=== PATIENT | male | born 1940 | race Caucasian/White ===

== ENCOUNTER 2018-10-10 07:12 | Observation (INO) | payer MEDICARE ==
[2018-10-10] MEDS ORDERED: Metoprolol Tartrate IV* 1 MG/ML 5 ML VIAL IV ONE (07:36)
[2018-10-10] MEDS ORDERED: hydrALAZINE IV* 20 MG/ML VIAL IV SLOW PU ONE (07:36)
[2018-10-10] MEDS ORDERED: Aspirin 81 mg CHEW TAB* 81 MG TAB.CHEW PO ONE (07:36)
--- NOTE | 2018-10-10 07:38 | ED ---
HPI Chest Pain - HPI Summary HPI Summary: Patient is a 78 y/o M presenting to ED with squeezing chest pain onsetting at 0300 today. No ripping/tearing nature to pain. Pain has been intermittent and at present he denies chest pain. No radiation of pain, no diaphoresis, no SOB, no nausea, no weakness reported. PMHx of [place] in 2000, stent has been placed. 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 He denies pain with exertion/activity. No recent illness reported. He notes some "aching" in lower jaw. No ASA or other medications taken [employer]. He notes that when he sat up, chest pain resolved, when he lied back down pain returned. He states that previous [place] was characterized by left arm pain and throat tightness. No such Sx reported today. claims that ST elevation was not observed on EKG during his 2000 [place]. He takes Metoprolol 25 mg BID. PMHx of HLD. FMHx of cardiac issues, father of [place] at 59. On triage, pain is denied. Home medications, allergies, and nurse's note reviewed. 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 Negative: Weakness, Shortness of Breath, Diaphoresis, Nausea - Allergy/Home Medications Allergies/Adverse Reactions: Allergies Allergy/AdvReac Type Severity Reaction Status Date / Time No Known Allergies Allergy Verified 10/10/18 07:18 PMH/Surg Hx/FS Hx/Imm Hx Endocrine/Hematology History: Denies: Hx Diabetes, Hx Systemic Lupus Erythematosus Cardiovascular History: Reports: Hx Coronary Artery Disease, Hx Hypercholesterolemia, Hx Hypertension - CONTROLLED WITH MEDS, Hx Myocardial Infarction GI History: Reports: Hx Gastroesophageal Reflux Disease History: Reports: Hx Benign Prostatic Hyperplasia Denies: Hx Renal Disease Musculoskeletal History: Reports: Hx Arthritis - KNEES Sensory History: Reports: Hx Contacts or Glasses - GLASSES Opthamlomology History: Reports: Hx Contacts or Glasses - GLASSES - Cancer History Cancer Type, Location and Year: Melanoma - Surgical History Surgery Procedure, Year, and Place: ORTHOSCOPIC KNEE SURGERY 1991 & [address] [facility] [place]. CARDIAC STENT- 2001 [place], [place]. "CLEAN OUT STENT" 2001 [place], [place] Hx Anesthesia Reactions: No Infectious Disease History: No Infectious Disease History: Denies: Traveled Outside the in Last 30 Days - Family History Known Family History: Positive: Cardiac Disease - father of [place] at 59 years of age - Social History Alcohol Use: Daily Alcohol Amount: 1-2 GLASSES OF WINE DAILY Substance Use Type: Reports: None Smoking Status (MU): Never Smoked Tobacco Type: Cigarettes Amount Used/How Often: 3-4 PPD Length of Time of Smoking/Using Tobacco: 26 YRS Have You Smoked in the Last Year: No Review of Systems Negative: Skin Diaphoresis Positive: Other - NEGATIVE - THROAT TIGHTNESS Positive: Chest Pain Negative: Shortness Of Breath Negative: Nausea Positive: Other - POSITIVE - JAW "ACHING"; NEGATIVE - LEFT ARM PAIN All Other Systems Reviewed And Are Negative: Yes Physical Exam - Summary Physical Exam Summary: Appearance: Well appearing, no pain distress Skin: warm, dry, reflects adequate perfusion Head/face: normal Eyes: EOMI, BRITTNI ENT: mucous membranes moist Neck: supple, non-tender Respiratory: CTA, breath sounds present Cardiovascular: RRR, pulses symmetrical Abdomen: non-tender, soft Bowel Sounds: present Musculoskeletal: normal, strength/ROM intact Neuro: normal, sensory motor intact, A&Ox3 Triage Information Reviewed: Yes Vital Signs On Initial Exam: Initial Vitals Temp Pulse Resp BP Pulse Ox 98.2 F 58 17 229/84 98 10/10/18 07:14 10/10/18 07:14 10/10/18 07:14 10/10/18 07:14 10/10/18 07:14 Vital Signs Reviewed: Yes Diagnostics - Vital Signs Vital Signs Temp Pulse Resp BP Pulse Ox 10/10/18 07:14 98.2 F 58 17 229/84 98 - Laboratory Result Diagrams: 10/10/18 07:43 10/10/18 07:43 Lab Statement: Any lab studies that have been ordered have been reviewed, and results considered in the medical decision making process. - Radiology CXR Radiology Interpretation Completed By: Radiologist Summary of Radiographic Findings: IMPRESSION: No radiographic evidence for acute cardiopulmonary abnormality on this. portable chest x-ray. This report was reviewed by ED physician. - EKG 0728 Cardiac Rate: Bradycardia - Rate of 55 BPM EKG Rhythm: Sinus Bradycardia ST Segment: Normal Summary of EKG Findings: EKG showed sinus bradycardia with rate of 55 BPM, left axis deviation, normal intervals, normal ST. Re-Evaluation - Re-Evaluation First Eval Re-Evaluation Time: 08:41 Change: Improved Comment: BP is 151 systolic. Discussed admission with patient, he is agreeable. Chest Pain Course/Dx - Course Course Of Treatment: Nurse's notes reviewed. Patient presents with chest pain very hypertensive. His blood pressure was controlled here with IV metoprolol, hydralazine. IV labetalol is not available. His initial troponin was negative and EKG is nondiagnostic for cardiac event. He will require further evaluation and treatment and will be admitted to the telemetry unit by the hospitalist service. - Chest Pain Differential Diagnosis/HQI/PQRI: Acute [place], ACS, Angina, Aortic Aneurysm, CHF, Chest Wall, GI Disease, Lower Respiratory Infection, Other: - Thoracic dissection - Diagnoses Provider Diagnoses: Hypertensive emergency, Acute coronary syndrome, Chest pain - Provider Notifications Discussed Care Of Patient With: Clark Hicks Time Discussed With Above Provider: 08:57 Instructed by Provider To: Other - Patient's case was discussed with Dr. Hicks at 0857, Dr. Hicks accepts for admission. Discharge - Sign-Out/Discharge Documenting (check all that apply): Patient Departure - admit - Discharge Plan Condition: Fair Disposition: ADMITTED TO [facility] Referrals: Didier Zaidi MD [Primary Care Provider] - - Billing Disposition and Condition Condition: FAIR Disposition: Admitted to [facility] - Attestation Statements Document Initiated by Royaibnatalia: Yes Documenting Scribe: JOEL CAMPBELL Provider For Whom David is Documenting (Include Credential): SANJANA CANO MD Scribe Attestation: JOEL Peters , scribed for SANJANA CANO MD on 10/10/18 at 1038. Scribe Documentation Reviewed: Yes Provider Attestation: The documentation as recorded by the JOEL betts accurately reflects the service I personally performed and the decisions made by me, SANJANA CANO MD Status of David Document: Viewed
[2018-10-10 07:57] LABS: INR 0.9 (0.77-1.02)
[2018-10-10 08:01] LABS: ABS Basophils 0 10^3/ul (0-0.2); ABS Eosinophils 0.3 10^3/ul (0-0.6); ABS Lymphocytes 1.4 10^3/ul (1.0-4.8); ABS Monocytes 0.6 10^3/ul (0-0.8); ABS Neutrophils 2.5 10^3/ul (1.5-7.7); ABS Nucleated RBC 0 10^3/ul; Eosinophil % 5.6 %; Hematocrit 45 % (42-52); Hemoglobin 15.5 g/dl (14.0-18.0); Lymphocyte % 28.7 %; Mean Corpuscular HGB Conc 34 g/dl (31-36); Mean Corpuscular Hemoglobin 33 pg (27-31); Mean Corpuscular Volume 95 fL (80-94); Mean Platelet Volume 8.4 fL (7.4-10.4); Nucleated Red Blood Cells % 0; Platelet Count 179 10^3/ul (150-450); Red Blood Count 4.76 10^6/ul (4.00-5.40); Red Cell Distribution Width 13 % (10.5-15); White Blood Count 4.8 10^3/ul (3.5-10.8)
[2018-10-10 08:10] LABS: Albumin 3.7 g/dL (3.2-5.2); Albumin/Globulin Ratio 1.1 (1-3); BUN/Creatinine Ratio 21.8 (8-20); Calcium 9.2 mg/dL (8.6-10.3); EGFR Non-African American 59.3 (>60); Globulin 3.4 g/dL (2-4); Potassium 4.4 mmol/L (3.5-5.0); Total Bilirubin 0.6 mg/dL (0.2-1.0); Total Protein 7.1 g/dL (6.4-8.9)
[2018-10-10] MEDS ORDERED: Hydrochlorothiazide TAB* 25 MG PO ONE (08:44)
[2018-10-10] MEDS ORDERED: amLODIPine TAB* 5 MG PO SCH (09:00)
[2018-10-10] MEDS ORDERED: Lisinopril TAB* 10 MG PO SCH (10:00)
[2018-10-10] MEDS ORDERED: Nitroglycerin TAB 0.4 MG* 0.4 MG TAB SL ONE (10:38)
[2018-10-10] MEDS ORDERED: Morphine VIAL* 4 MG/ML VIAL (1 ml vial) IV PRN (10:39)
[2018-10-10] MEDS ORDERED: hydrALAZINE IV* 20 MG/ML VIAL IV SLOW PU PRN ×2 (10:44→12:49)
[2018-10-10] MEDS: Enoxaparin(*) 40 MG/0.4 ML SYR SUBCUT SCH (12:32)
--- NOTE | 2018-10-10 13:06 | HP ---
ADMITTING HISTORY AND PHYSICAL: DATE OF ADMISSION: 10/10/18 CHIEF COMPLAINT: Chest pain. HISTORY OF PRESENT ILLNESS: The patient is a 78-year-old gentleman with a history of hyper tension, hypercholesterolemia, CAD, status post [place] with bare- metal stent many years ago, who mention ed that he was in his usual state of health until about 2 weeks prior to admission when he started fe eling some discomfort in his left jaw. This persisted for a while, but the patient decided to contin ue observing his symptoms until a few hours prior to admission at around 3 a.m. in the morning when rhea fisher woke up with a 10/10 chest pain where he mentions that as if his heart is being squeezed, but this time did not feel any jaw pain and it did not radiate. He was not clear as to how long the chest moses n lasted, but this made him concerned enough to go to the ER for evaluation, at which point he was fo und to have elevated blood pressure with a value of 229/84. He is still complaining of some mild [place] [address] pain and was given aspirin 81 mg, hydralazine 10, HCTZ 25 mg, lisinopril 20 mg, metoprolol 5 mg as well as amlodipine 10 mg which had subsequently improved this blood pressure and mentioned that his chest pain resolved shortly thereafter. PAST MEDICAL AND SURGICAL HISTORY: Hypertension, hypercholesterolemia, CAD, status post [place] with a ba re-metal stent, BPH, prediabetes, bilateral cataract surgery, arthroscopic meniscus repair of bilater al knee. HOME MEDICATIONS: As follows: 1. Omeprazole 1 tab p.o. b.i.d. 2. Metoprolol 25 mg p.o. b.i.d. 3. HCTZ 1 tab p.o. daily. 4. Finasteride 1 tab p.o. daily. 5. Benazepril 1 tab p.o. daily. 6. Atorvastatin 1 tab p.o. daily. 7. Aspirin 81 mg p.o. daily. 8. Amlodipine 2.5 mg p.o. daily. ALLERGIES: NKDA. FAMILY HISTORY: [place], his father, at the age of 59; diabetes, his mother and maternal grandfather . SOCIAL HISTORY: He mentions that he quit back in 1984 and has had at least 20 years smoking 2 packs per day. Denies any history of IV drug nor alcohol abuse. REVIEW OF SYSTEMS: Although, he did have chest pain as described, on my review, he was chest pain fr ee. He denied any headaches, dizziness, fevers, chills, nausea, vomiting, myalgias or arthralgias, t hroat pain or new skin lesions. The rest of the 14-point review of systems are otherwise unremarkabl e. PHYSICAL EXAMINATION GENERAL APPEARANCE: The patient is awake, alert, and oriented x3, not in acute distress. VITAL SIGNS: Reveals the most recent vital signs of records with blood pressure of 159/61, 56 beats per minute heart rate, 19 per minute respiratory rate, saturating at 99% on room air. HEENT: Normocephalic, atraumatic. PERRLA. Extraocular muscles intact. Negative for icterus. Mois t oral mucosa. Negative throat erythema. NECK: Soft, supple with no cervical lymphadenopathy. No JVD. CHEST: Clear to auscultation bilaterally. Good air entry. No wheezes, rales, or rhonchi. HEART: S1, S2, within normal limits. Regular rate and rhythm. No murmurs, rubs, or gallops. ABDOMEN: Soft, nondistended, nontender. Normoactive bowel sounds x4 quadrants. EXTREMITIES: No cyanosis, clubbing, or edema. PSYCHIATRIC: No active psychosis, depression, suicidal or homicidal ideations. SKIN: Warm to touch. DIAGNOSTIC STUDIES/LAB DATA: Most recent and pertinent laboratories drawn shows a CBC with normal W BC, H and H, and platelet count. INR is 0.9. Sodium and potassium are found to be normal. BUN and creatinine are found to be 26 and 1.19, which are within his baseline values. BNP of 35. Troponin o f 0.01. EKG showing 55 beats per minute, left anterior fascicular block with no ST segment changes. ASSESSMENT AND PLAN: The patient is a 78-year-old gentleman with a history of hypertension , hypercholesterolemia, and coronary artery disease, status post previous myocardial infarction, admi tted for chest pain possibly due to hypertensive urgency. 1. Chest pain likely secondary to uncontrolled hypertension. At this time, I agree with increasing amlodipine and continuing his lisinopril and HCTZ. I will place him on p.r.n. hydralazine and furthe r adjust his p.o. medications if he requires frequent hydralazine needs. We will trend cardiac enzym es x3 and will have the patient go for a Lexiscan stress test. He mentions that his last stress test was 2 years ago and was told that everything was "fine." 2. History of coronary artery disease. Continue aspirin, metoprolol, lisinopril, and simvastatin, a nd we will continue watchful waiting. 3. Uncontrolled hypertension. Please see above discussion. 4. Benign prostatic hypertrophy. Continue finasteride. 5. DVT prophylaxis. We will place the patient on Lovenox and we will continue watchful waiting. 6. Disposition. For possible discharge in 1 to 2 days. [id number]/[facility] #: [id number]
--- NOTE | 2018-10-10 15:30 | ECHO ---
Patient: ELLIOT [place] [facility] Rec#: [id number] : 1940 Date: 10/10/2018 Age: 78y Height: 183 cm / 72.0 in Weight: 97.5 kg / 214.9 lbs Sex: M BSA: 2.2 Room#: [facility] Admit Date#: 10/10/2018 Type: Inpatient Referring: Clark Hicks Reading: Richi Solano DO Medical Manager: Samira Alonso RDCS CC: Didier Zaidi MD CC: Jaime Alex MD Transthoracic Echocardiogram Indication: Chest pain BP: 154/65 HR: 55 Rhythm: Bradycardia Findings History: CAD with ND, s/p PCI, HTN, HLD. Technical Comments: The study quality is fair. Completed at 1415. Left Ventricle: The left ventricular chamber size is normal. Mild concentric left ventricular hypertrophy is observed. There is a prominent septal knuckle. Global left ventricular wall motion and contractility are within normal limits. There is normal left ventricular systolic function. The estimated ejection fraction is 60-65%. Abnormal left ventricular diastolic function is observed. The left ventricular diastolic filling pattern is consistent with pseudonormalization. Left Atrium: The left atrium is mildly dilated. Right Ventricle: The right ventricular chamber size and systolic function are within normal limits. Right Atrium: The right atrium is mildly dilated. Aortic Valve: The aortic valve is trileaflet. The aortic valve leaflets are mildly thickened. There is mild to moderate aortic regurgitation. There is no evidence of aortic stenosis. Mitral Valve: The mitral valve leaflets are mildly thickened. There is a trace of mitral regurgitation. There is no evidence of mitral stenosis. Tricuspid Valve: The tricuspid valve leaflets are normal. There is trace tricuspid regurgitation. Unable to estimate the right ventricular systolic pressure. There is no tricuspid stenosis. Pulmonic Valve: The pulmonic valve appears normal. There is a trace pulmonic regurgitation. There is no pulmonic stenosis. Pericardium: There is no significant pericardial effusion. Aorta: There is no dilatation of the ascending aorta. There is no dilatation of the aortic arch. The aortic root is normal in size. Pulmonary Artery: The main pulmonary artery is not well visualized. Venous: The venous system is not well visualized. The inferior vena cava is not visualized. Conclusions The left ventricular chamber size is normal. Mild concentric left ventricular hypertrophy is observed. There is a prominent septal knuckle. There is normal left ventricular systolic function. The estimated ejection fraction is 60-65%. Global left ventricular wall motion and contractility are within normal limits. The left atrium is mildly dilated. The right ventricular chamber size and systolic function are within normal limits. There is mild to moderate aortic regurgitation. None prior for comparison at time of interpretation Measurements Name Value Normal Range RVIDd (AP) 2D 3.7 cm (0.9 - 2.6) RVDdMajor (2D) 4.8 cm (2.2 - 4.4) RAd ISD 4CH 5.1 cm (3.4 - 4.9) RA (A4C)W 4.3 cm (2.9 - 4.6) IVSd (2D) 1.1 cm (0.6 - 1) LVPWd (2D) 1.1 cm (0.6 - 1) LVIDd (2D) 4.9 cm (3.6 - 5.4) LVIDs (2D) 3.2 cm - LV FS (2D) 35 % (25 - 45) Aortic Annulus 2.2 cm (1.4 - 2.6) Ao root diameter (2D) 3.5 cm (2.1 - 3.5) Ascending Ao 2.7 cm (2.1 - 3.4) Aortic arch 2.9 cm (1.8 - 3.4) LA dimension (AP) 2D 4.3 cm (2.3 - 3.8) LAd ISD 4CH 5.4 cm (2.9 - 5.3) LA ISD 4CH W 4.6 cm (2.5 - 4.5) Name Value Normal Range LA ESV BP (A/L) index 29 ml/m2 - Name Value Normal Range MV E-wave Vmax 0.7 m/sec - MV deceleration time 229 msec - MV A-wave Vmax 0.6 m/sec - MV E:A ratio 1.2 ratio - LV septal e' Vmax 0.06 m/sec - LV lateral e' Vmax 0.11 m/sec - LV E:e' septal ratio 11.7 ratio - LV E:e' lateral ratio 6.4 ratio - Name Value Normal Range AV Vmax 1.5 m/sec - AV VTI 33 cm - AV peak gradient 9 mmHg - AV mean gradient 5 mmHg - LVOT Vmax 1 m/sec - LVOT VTI 24 cm - LVOT peak gradient 4 mmHg - LVOT mean gradient 2 mmHg - AR PHT 510 msec - CYNTHIA Vmax 0.7 m/sec - Name Value Normal Range PV Vmax 0.9 m/sec - PV peak gradient 3 mmHg -
[2018-10-10] MEDS: Metoprolol Tartrate TAB* 25 MG PO SCH (20:52)
[2018-10-10] MEDS: Pantoprazole TAB * 40 MG TAB PO SCH (20:52)
[2018-10-11 07:10] LABS: Hematocrit 44 % (42-52); Mean Corpuscular HGB Conc 34 g/dl (31-36); Mean Corpuscular Hemoglobin 33 pg (27-31); Mean Corpuscular Volume 96 fL (80-94); Mean Platelet Volume 8.3 fL (7.4-10.4); Platelet Count 152 10^3/ul (150-450); Red Blood Count 4.58 10^6/ul (4.00-5.40); Red Cell Distribution Width 13 % (10.5-15); White Blood Count 5.3 10^3/ul (3.5-10.8)
[2018-10-11 07:27] LABS: Albumin 3.6 g/dL (3.2-5.2); Albumin/Globulin Ratio 1.2 (1-3); BUN/Creatinine Ratio 19.7 (8-20); Calcium 9.3 mg/dL (8.6-10.3); Globulin 3.1 g/dL (2-4); Magnesium 1.9 mg/dL (1.9-2.7); Phosphorus 3.1 mg/dL (2.5-5.0); Potassium 4.4 mmol/L (3.5-5.0); Total Bilirubin 0.6 mg/dL (0.2-1.0); Total Protein 6.7 g/dL (6.4-8.9)
[2018-10-11] MEDS ORDERED: Finasteride TAB* 5 MG PO SCH (09:00)
[2018-10-11] MEDS ORDERED: Lisinopril TAB* 10 MG PO SCH (09:00)
[2018-10-11] MEDS ORDERED: amLODIPine TAB* 5 MG PO SCH (09:00)
[2018-10-11] MEDS ORDERED: Atorvastatin* 40 MG TAB PO SCH (09:00)
[2018-10-11] MEDS ORDERED: Hydrochlorothiazide TAB* 25 MG PO SCH (09:00)
[2018-10-11] MEDS ORDERED: Aspirin EC TAB* 81 MG TAB.EC PO SCH (09:00)
[2018-10-11] MEDS ORDERED: Regadenoson* 0.4 MG/5 ML SYRINGE ONE (09:29)
--- NOTE | 2018-10-11 14:34 | PN ---
Subjective Date of Service: 10/11/18 Interval History: Pt seen and examined. Meds and labs reviewed. CC: N/A ROS: Denied STRANGE/dizziness, F/C, N/V, CP, SOB, increased cough, sputum production , abd pain, diarrhea, constipation, dysuria, myalgias, arthralgias, throat pain , and new skin lesions. The rest of the 14 point ROS are unremarkable. PHYSICAL EXAM: GEN APPEARANCE: Awake, not in acute distress HEENT: NC/AT, PERRLA, moist oral mucosa, (-) throat erythema NECK: Soft, supple, (-) cervical LAD, (-)JVD HEART: S1S2 WNL, RRR, No MRG CHEST: CTA, BL, GAE, No W/R/R ABD: Soft, ND/NT, NABS 4x Q EXT: No C/C/E SKIN: Warm to touch PSYCH: No active psychosis, hallucinations, depression, SI/HI Objective Active Medications: Amlodipine Besylate (Norvasc Tab*) 10 mg PO DAILY [facility] Aspirin (Aspirin Ec Tab*) 81 mg PO DAILY [facility] Atorvastatin Calcium (Lipitor*) 40 mg PO DAILY [facility] Enoxaparin Sodium (Lovenox(*)) 40 mg SUBCUT Q24H [facility] Last Admin: 10/10/18 12:32 Dose: 40 mg Finasteride (Proscar Tab*) 5 mg PO DAILY [facility] Hydralazine HCl (Apresoline Iv*) 10 mg IV SLOW PU Q6H PRN PRN Reason: Hypertension Hydrochlorothiazide (Hydrodiuril Tab*) 25 mg PO DAILY [facility] Lisinopril (Prinivil Tab*) 20 mg PO DAILY [facility] Metoprolol Tartrate (Lopressor Tab*) 25 mg PO BID [facility] Last Admin: 10/10/18 20:52 Dose: 25 mg Morphine Sulfate (Morphine Vial*) 0.5 mg IV Q6H PRN PRN Reason: PAIN Pantoprazole Sodium (Protonix Tab *) 40 mg PO BID [facility] Last Admin: 10/10/18 20:52 Dose: 40 mg Vital Signs - 8 hr 10/11/18 10/11/18 10/11/18 07:52 08:58 11:10 Temperature 97.5 F 98.1 F Pulse Rate 58 65 Respiratory 16 16 16 Rate Blood Pressure 144/68 139/61 (mmHg) O2 Sat by Pulse 100 100 Oximetry Oxygen Devices in Use Now: None Result Diagrams: 10/11/18 06:51 10/11/18 06:51 Assess/Plan/Problems-Billing Assessment: - Patient Problems (1) Hypertensive urgency Current Visit: Yes Status: Acute Code(s): I16.0 - HYPERTENSIVE URGENCY SNOMED Code(s): 629698031 Comment: -Resolved -Troponins (-) x 4 -BP well-controlled -Continue Amlodipine, HCTZ, Lisinopril, and Metoprolol (2) Chest pain Current Visit: Yes Status: Acute Code(s): R07.9 - CHEST PAIN, UNSPECIFIED SNOMED Code(s): 90351130 Comment: -Likely due to above -Awaiting results of stress test (3) CAD (coronary artery disease) Current Visit: Yes Status: Acute Code(s): I25.10 - ATHSCL HEART DISEASE OF [place] CORONARY ARTERY W/O ANG PCTRS SNOMED Code(s): 94429737 Comment: -Continue ASA, Metoprolol, Lisinopril, and simvastatin (4) GERD (gastroesophageal reflux disease) Current Visit: Yes Status: Acute Code(s): K21.9 - GASTRO-ESOPHAGEAL REFLUX DISEASE WITHOUT ESOPHAGITIS SNOMED Code(s): 820955592 Comment: -Continue Pantoprazole (5) BPH (benign prostatic hyperplasia) Current Visit: Yes Status: Acute Code(s): N40.0 - BENIGN PROSTATIC HYPERPLASIA WITHOUT LOWER URINRY TRACT SYMP SNOMED Code(s): 849796872 Comment: -Continue Finasteride (6) DVT prophylaxis Current Visit: Yes Status: Acute Code(s): SIF5518 - SNOMED Code(s): 414759918 Comment: -Continue Lovenox Status and Disposition: -As above
[2018-10-11 15:50] VITALS: BP 149/78
[2018-10-11] MEDS: Metoprolol Tartrate TAB* 25 MG PO SCH (16:40)
[2018-10-11] MEDS: Pantoprazole TAB * 40 MG TAB PO SCH (16:43)
[2018-10-11] MEDS: Enoxaparin(*) 40 MG/0.4 ML SYR SUBCUT SCH (16:44)
--- NOTE | 2018-10-11 21:21 | DS ---
CC: Dr. Keith Lane; Dr. Didier Zaidi * DISCHARGE SUMMARY: DATE OF ADMISSION: DATE OF DISCHARGE: 10/11/18 DISCHARGE DIAGNOSES: 1. Hypertensive urgency, resolved. 2. Chest pain, resolved, likely due to above; stress test low probability. 3. Coronary artery disease, history of. 4. Benign prostatic hypertrophy, history of. DISCHARGE MEDICATIONS: 1. Norvasc 10 mg p.o. daily. 2. Aspirin 81 mg p.o. daily. 3. Finasteride 5 mg tab p.o. daily. 4. HCTZ 25 mg p.o. daily. 5. Metoprolol tartrate 25 mg p.o. b.i.d. 6. Omeprazole 20 mg p.o. b.i.d. 7. Atorvastatin 40 mg p.o. daily. 8. Benazepril 40 mg p.o. daily. HISTORY OF PRESENT ILLNESS/HOSPITAL COURSE: The patient is a 78-year-old gentleman with history of hypertension, hypercholesterolemia, CAD, status post [place] with bare metal stent many years ago, who was in his usual state of health until 2 weeks prior to admission when he started feeling some discomfort in his left jaw. He mentioned that this persisted for a while, but decided to continue observing his symptoms until a few hours prior to admission at around 3 a.m. in the morning when he woke up with a 10/10 chest pain where he mentions as if his heart was being squeezed. He there presented to the ED for evaluation and was found to have an elevated blood pressure with a value of 229/84. He was then given antihypertensives in the ED and his oral antihypertensives were adjusted, which resolved his symptoms acutely such as the chest pain that he presented with and felt better the following day. He also had a stress test done, which was resulted as low probability stress test and hence he will be discharge to home improved and likely the patient has had a chest pain due to hypertensive urgency as described. The patient had been advised to follow up and/or call his PCP within 3 days post discharge. He was informed that the stress test back as being low risk and he was advised to count his daily sodium intake by looking at this labels; and if his food is unlabeled, he was asked to goggle and performed an appropriate research on the amount of sodium per serving of the food that he is interested in. He was advised further that he should avoid consuming more than 2 g of sodium per day. If his symptoms resume or develop new ones, he was advised to call his PCP first; and if his PCP cannot entertain and due to scheduling issues alone to call [facility] if the issue is considered non emergent. He was advised to call my office regarding any questions, concerns, or further clarifications regarding his discharge plans and/or prescriptions and to take his medications as prescribed. REVIEW OF SYSTEMS: The patient currently denies any headache, dizziness, fevers , chills, nausea, vomiting, chest pain, shortness of breath, increased cough, sputum production, abdominal pain, diarrhea, constipation, pain and/or increased frequency on urination, myalgias or arthralgia, throat pain, or new skin lesion. The rest of the 14-point review of systems are otherwise unremarkable. PHYSICAL EXAMINATION: Shows the most recent vital signs of records with blood pressure of 149/78, 99.4 degrees Fahrenheit, 96 beats per minute heart rate, 14 per minute respiratory rate, saturating at 100% on room air. General Appearance : The patient is awake, alert, and oriented x3, not in acute distress. HEENT: Normocephalic, atraumatic. PERRLA. Extraocular muscles intact. Negative for icterus. Moist oral mucosa. Negative throat erythema. Neck is soft, supple with no cervical lymphadenopathy. No JVD. Heart: S1 and S2, within normal limits. Regular rate and rhythm. No murmurs, rubs, or gallops. Chest: Clear to auscultation bilaterally. Good air entry. No wheezes, rales, or rhonchi. Abdomen is soft, nondistended, nontender. Normoactive bowel sounds x4 quadrants. Extremities: No cyanosis, clubbing, or edema. Psychiatric: No active psychosis, depression, suicidal nor homicidal ideation. Skin is warm to touch. TIME SPENT: The total time spent evaluating the patient, reviewing pertinent data, and appropriate documentation is 45 minutes. [id number]/[facility] #: [id number] MTDD
== END 2018-10-11 17:30 | disposition home or self-care (01) ==
LOC: ED 07:12 → MEDTELE 10:25
PROVIDERS: ADMIT Student in an Organized Health Care Education/Training Program; ATTEND Student in an Organized Health Care Education/Training Program
DX: I10 Essential (primary) hypertension (principal); R07.9 Chest pain, unspecified; I25.10 Atherosclerotic heart disease of native coronary artery without angina pectoris; N40.0 Benign prostatic hyperplasia without lower urinary tract symptoms; Z79.82 Long term (current) use of aspirin; F43.9 Reaction to severe stress, unspecified; K21.9 Gastro-esophageal reflux disease without esophagitis
CPT/HCPCS: 36415; 71045; 78452; 80053; 83605; 83735; 83880; 84100; 84484; 85025; 85027; 85610; 93005; 93017; 93306; 96372; 96374; 96375; 99284; A9270-GY; A9502; G0378; J0360; J1650; J2785; J3490

== ENCOUNTER 2019-10-07 07:36 | Observation (INO) | payer MEDICARE ==
--- NOTE | 2019-09-30 15:06 | HP ---
HISTORY AND PHYSICAL: DATE OF ADMISSION: 10/07/19 ATTENDING PROVIDER: Dr. Milian * (DICTATED BY GODFREY OROZCO) CHIEF COMPLAINT: Right hip pain. HISTORY OF PRESENT ILLNESS: Mr. Minor is a 79-year-old gentleman with bilateral hip pain over 3 years, 5/10, aching in the groin and lateral hip on both thighs. The pain is increased with walking more than a block, prolonged sitting, and stair climbing. In the past, he has failed conservative management with anti- inflammatories, home exercises, and injections of the hip under ultrasound guidance. He would like to proceed with a right total hip arthroplasty at this time. PAST MEDICAL HISTORY: 1. Hypertension. 2. Prior myocardial infarction. 3. Hypercholesterolemia. 4. Osteoarthritis. 5. Melanoma. 6. Raynaud disease. 7. Umbilical hernia. PAST SURGICAL HISTORY: 1. Cardiac stent. 2. Cataract excision. 3. Melanoma excision. 4. Bilateral meniscus knee surgeries 20 years ago. 5. Skin carcinoma excision. MEDICATIONS: 1. Amlodipine. 2. Aspirin 81 mg. 3. Multivitamin. 4. Omeprazole 20. 5. Finasteride 5 mg. 6. Atorvastatin calcium 40 mg. 7. Benazepril 40 mg. 8. Hydrochlorothiazide 25 mg. 9. Metoprolol 50 mg. 10. Calcium 500+ D3 600 ALLERGIES: No known drug allergies. FAMILY HISTORY: Maternal diabetes, paternal heart disease and hypertension. SOCIAL HISTORY: The patient lives with his . He is retired. No tobacco or recreational drug use. He drinks 5 to 7 alcoholic beverages per week. He is normally active with walking and right-hand dominant. REVIEW OF SYSTEMS: General: The patient denies any fevers, chills, or night sweats. No known anesthesia problems. HEENT: The patient denies any headaches , lightheadedness or syncopal episode. Cardiothoracic: Denies any chest pain, heart palpitations, or edema. Pulmonary: Denies any shortness of breath with exertion, chronic cough. GI: The patient denies any nausea, vomiting, diarrhea , or constipation. : The patient denies any nocturia, urinary frequency or urgency. MSK: The patient denies any chronic or intermittent back pain. Neuro: Denies any paresthesias, numbness, or seizures. Integument: The patient denies any abrasions, lesions, rashes, lumps, or open sores. PHYSICAL EXAMINATION GENERAL: The patient is alert and oriented x3 with appropriate mood and affect , appropriately dressed and hygiene, slightly antalgic gait. HEENT: Normocephalic atraumatic. Hearing and vision are grossly intact. PULMONARY: Lungs are clear to auscultation bilaterally with no wheezes, rales or rhonchi. CARDIO: Regular rate and rhythm. Normal S1 and S2. No appreciable S3 or S4. No murmurs, rubs, or gallops. MSK: Inspection of the right lower extremity reveals no erythema or ecchymosis. Skin is warm, dry, and intact. He has range of motion of the hip to 90 degrees with groin pain. 0 degrees of internal rotation and 30 degrees of external rotation with groin pain. He is neurovascularly intact distally and has a 2+ dorsalis pedis pulse. ASSESSMENT: Bilateral end-stage osteoarthritis, right hip worse than left. PLAN: To the OR for a right total hip arthroplasty to be performed by Dr. Halina Milian on 10/07/19. The risks and complications were reviewed today and a signed understanding was obtained. The patient will follow up in 10 to 14 days postoperatively for suture removal. GODFREY OROZCO [id number]/[facility] #: [id number] MTDD
[~2019-10-07 07:36] MED LIST: Acetaminophen TAB* 325 MG PO ONE; Buffered Lidocaine 1% SYRIN* 1 ML/SYRINGE INTRADERM ONE; Lactated Ringers 1000 ML Bag* 1,000 ML IV SCH; Tranexamic Acid 1,000 MG in NS 0.9% 50 ML IV ONE; celeCOXIB CAP* 200 MG PO ONE
[2019-10-07] MEDS ORDERED: ceFAZolin 2 GM in NS PREMIX(*) 2 GM/100 ML BAG IVPB ONE (08:14)
[2019-10-07] MEDS ORDERED: celeCOXIB CAP* 200 MG ONE (08:14)
[2019-10-07] MEDS ORDERED: Acetaminophen TAB* 325 MG ONE (08:14)
[2019-10-07] MEDS ORDERED: Naloxone* 0.4 MG/ML 1 ML VIAL IV PRN (09:27)
[2019-10-07] MEDS ORDERED: HYDROmorphone INJ1* 1 MG/ML SYRINGE IV PRN (09:27)
[2019-10-07] MEDS ORDERED: fentaNYL* 50 MCG/ML 2 ML VIAL (100 MCG VIAL) ONE (09:32)
[2019-10-07] MEDS ORDERED: EPHEDrine (Pressors)* 50 MG/ML VIAL ONE (10:10)
[2019-10-07] MEDS ORDERED: Ondansetron INJ* 2 MG/ML VIAL ONE (10:10)
[2019-10-07] MEDS ORDERED: Dexamethasone IV* 4 MG/ML 1 ML (4 MG) ONE (10:10)
[2019-10-07] MEDS ORDERED: Propofol* 500 MG/50 ML BTL ONE (10:10)
[2019-10-07] MEDS ORDERED: Bupivacaine 0.5% SDV PF* 30ML VIAL ONE (10:23)
[2019-10-07] MEDS ORDERED: Propofol* 10 MG/ML 20 ML BTL ONE (11:32)
[2019-10-07] MEDS ORDERED: diPHENhydraMINE PO* 25 MG PO PRN (11:59)
[2019-10-07] MEDS ORDERED: Morphine INJ* 2 MG/ML 1 ML SYRINGE (TWO MG - NEW SYRINGE VERSION) IV PRN (11:59)
[2019-10-07] MEDS ORDERED: oxyCODONE TAB* 5 MG TAB PO PRN (11:59)
[2019-10-07] MEDS ORDERED: Ondansetron INJ* 2 MG/ML VIAL IV PRN (11:59)
[2019-10-07] MEDS ORDERED: Acetaminophen TAB* 325 MG PO PRN (11:59)
[2019-10-07] MEDS ORDERED: diPHENhydraMINE IV* 50 MG/ML 1 ml VIAL (BENADRYL) IV PRN (11:59)
[2019-10-07] MEDS ORDERED: Ondansetron ODT TAB* 4 MG PO PRN (11:59)
[2019-10-07] MEDS ORDERED: oxyCODONE/Acetamin 5/325 MG* TAB PO PRN (11:59)
[2019-10-07] MEDS ORDERED: Magnesium Hydroxide LIQ* 30 ML UDC PO PRN (11:59)
[2019-10-07] MEDS ORDERED: Cyclobenzaprine TAB* 10 MG PO PRN (11:59)
[2019-10-07] MEDS ORDERED: Lactated Ringers 1000 ML Bag* 1,000 ML IV SCH (12:00)
[2019-10-07] MEDS ORDERED: oxyCODONE/Acetamin 5/325 MG* TAB ONE (14:04)
[2019-10-07] MEDS: oxyCODONE/Acetamin 5/325 MG* TAB PO PRN ×2 (14:07→17:57)
[2019-10-07] MEDS: amLODIPine TAB* 5 MG PO SCH (14:07)
--- NOTE | 2019-10-07 14:19 | CONS ---
[facility] MEDICINE CONSULTATION REPORT: DATE OF CONSULT: 10/07/19 ATTENDING PHYSICIAN WHILE IN THE HOSPITAL: Dr. Halina Milian. CONSULTING PHYSICIAN: Dr. Shraddha Castellon (dictated by Halina August NP). REASON FOR CONSULT: Co-management of chronic medical conditions. HISTORY OF PRESENT ILLNESS: Mr. Minor is a 79-year-old male with a past medical history significant for hypertension, history of an [place], hyperlipidemia, osteoarthritis, melanoma, Raynaud disease, who [place] [facility] [place] an elective right total hip arthroplasty with Dr. Milian. Please see dictated H and P from GODFREY Peres for complete details. In brief, the patient had ongoing pain, failed conservative measures, therefore opted for a right total hip arthroplasty with Dr. Miilan. In the immediate postoperative period, the patient has no complaints. He denies any chest pain or shortness of breath. Denies any nausea, vomiting, or diarrhea. Denies any abdominal pain. Denies any cough or congestion. Denies any recent fever or chills. Due to the patient' s history of hypertension and coronary artery disease, Hospital Medicine was asked to help co-manage his care during this hospitalization. PAST MEDICAL HISTORY: Significant for: 1. Osteoarthritis. 2. Hypertension. 3. History of [place]. 4. Hyperlipidemia 5. Melanoma. 6. Raynaud disease. 7. Umbilical hernia. PAST SURGICAL HISTORY: 1. Cardiac stent placement. 2. Cataract surgery. 3. Melanoma. 4. Meniscus repair to the knee. MEDICATIONS: Home medications include: 1. Aspirin 81 mg p.o. daily. 2. Atorvastatin 40 mg p.o. daily. 3. Finasteride 5 mg p.o. daily. 4. Hydrochlorothiazide 25 mg p.o. daily. 5. Lopressor 25 mg p.o. b.i.d. 6. Omeprazole 20 mg p.o. daily. 7. Benazepril 40 mg p.o. daily. 8. Calcium 1 tab p.o. daily. 9. Multivitamin 1 tab p.o. daily. 10. Amlodipine 10 mg p.o. daily. ALLERGIES: No known drug allergies. FAMILY HISTORY: Father at the age of 59 from an [place], mother and maternal grandfather with diabetes. No reported history of cancer. SOCIAL HISTORY: The patient reports that he quit smoking in 1984. Prior to that, he smoked for 30 years, 4 to 5 packs per day. He does report he drinks a glass of wine 3 to 5 days a week. No illicit drug use. Surrogate decision maker in the event he is unable to make his own decisions is his . He is a full code. REVIEW OF SYSTEMS: A 14-point review of systems was completed. All pertinent positives are mentioned in the HPI. PHYSICAL EXAM: General: At this time, Mr. Minor is a 79-year-old male. He is alert and oriented, resting in the hospital bed in PACU. He is in no acute distress. Vital Signs: Blood pressure 168/68, heart rate 50, respirations 18, O2 saturation 98% on room air. Temperature was 97.0. HEENT: Head is atraumatic, normocephalic. Eyes: EOMs are intact. Sclerae anicteric and not pale. Oral mucosa is moist. Neck is supple. Lungs are clear to auscultation bilaterally. No wheezes, rales, or rhonchi. Cardiac: S1 and S2. Regular rate and rhythm. No rubs or gallops. Abdomen: Obese, soft, nontender. Bowel sounds are present x4. Extremities: He is able to move all 4 extremities. He does have a dressing that is dry and intact to his right hip. Pedal pulses are +2 bilaterally. There is no clubbing or cyanosis. Neurologic: He is awake, alert, oriented x3. His speech is clear. Thought process is intact. There is gross focal deficit. Skin: He does have a dressing dry and intact to his right hip. DIAGNOSTIC STUDIES/LAB DATA: CBC from 09/29/19, WBCs were 7.8, RBCs 4.71, hemoglobin 15.7, hematocrit was 45, platelet count was 174. INR was 0.95. PTT was 31.3. Urine was within normal limits with the exception of glucose of 3+. IMPRESSION AND PLAN: Mr. Minor is a 79-year-old male with past medical history significant for hypertension; history of myocardial infarction, status post cardiac stenting; hyperlipidemia; osteoarthritis; melanoma; Raynaud's; and history of umbilical hernia, who presented [place] [facility] [place] elective right total hip arthroplasty with Dr. Milian. Our recommendations are as follows: 1. Status post right total hip arthroplasty. Management per Orthopedics. PT and OT per Orthopedics. Bowel regimen per Orthopedics. Pain management per Orthopedics. DVT prophylaxis per Orthopedics. 2. Hypertension. We will continue his amlodipine. I will give him a dose now. I will cut his benazepril to 20 mg p.o. daily and titrate as needed to control blood pressure. I will hold his hydrochlorothiazide at this time and will continue Lopressor 25 mg p.o. b.i.d. 3. Coronary artery disease. The patient will continue on Lopressor and atorvastatin as previously prescribed. 4. Hyperlipidemia. The patient will continue atorvastatin 40 mg p.o. daily. 5. Gastroesophageal reflux disease. He should continue on omeprazole 20 mg p.o. daily. 6. FEN: He can have a heart healthy, caffeine okay diet. 7. Code status: He is a full code. 8. DVT prophylaxis: As per Ortho. TIME SPENT: Time spent on this consultation was 45 minutes, greater than half that time was spent at the bedside reviewing events leading thus far to his hospitalization, performing physical exam, and reviewing my plan of care. I have discussed this with my attending Dr. Shraddha Castellon; she is in agreement with my plan. HALINA AUGUST, [place] [id number]/[facility] #: [id number] DONNELL
--- NOTE | 2019-10-07 15:31 | PN ---
Progress Note - Progress Note Date of Service: 10/07/19 Note: OOB to chair, resting comfortably. pain well controlled; able to DF/PF, 2+ DP pulse, intact sensation
[2019-10-07] MEDS: ceFAZolin 1 GM ADVAN(*) 1 GM in NS 0.9% 50 ML* 50 ML IVPB SCH (17:58)
[2019-10-07] MEDS ORDERED: Atorvastatin* 40 MG TAB PO SCH (18:00)
--- NOTE | 2019-10-07 19:26 | OP ---
Operative Report - Blank - Operative Report Date of Operation: 10/07/19 Note: ELLIOT OH 1940 Date Of Surgery: 10/07/19 Halina Milian MD Hand Mica Plate Layer: Carmelo DONAHUE did help throughout the procedure with preparation of the hip, wound retraction, manipulation of the hip, and wound closure. Anesthesiologist: DR. Sethi Anesthesia Type: Spinal Preoperative Diagnosis: Right severe degenerative osteoarthritis of the hip Postoperative Diagnosis: As above Procedure Performed: Right Total Hip Arthroplasty Complications: None Specimen: Femoral head and acetabular reamings sent to pathology. Hardware used: This is uncemented [place] total hip arthroplasty hardware for the femur a size 6 accolde II with 127 neck angle femoral component, for the acetabulum a size 56F trident II tritanium cluster hole shell with one 20mm screw, for the insert a size 40 F trident X3 polyethylene insert, and for the femoral head a size 40+0 LFIT anatomic metal V40 femoral head. Brief history/Indication: ELLIOT OH was known in clinic and had a history of severe right hip pain. He failed conservative treatment with anti- inflammatories, pain pills, intra-articular injections and physical therapy. He elected to undergo right total hip arthroplasty due to continued pain and decreased quality of life. Radiographs showed severe end stage osteoarthritis of the hip with bone on bone contact. Informed consent was obtained from the patient. He understood the risks of surgery included but were not limited to: bleeding, infection, damage to nearby structures, intraoperative fracture, nerve palsy, failure of the hardware, early loosening, stiffness or loss of motion, dislocation, leg length discrepancy, anesthesia complications, stroke, heart attack, blood clot and . He wished to proceed. Intra-Operative findings: Intraoperatively the patient was noted to have severe loss of cartilage of the acetabulum and femoral head. Description of the Procedure: ELLIOT OH was identified in the preanesthesia unit. His hip was marked as the correct operative side. Informed consent was signed and placed in the chart. The patient was taken to the operating room and placed under anesthesia without complication. A perez catheter was placed. The patient was placed on the peg board with all bony prominences well padded. The right lower extremity was prepped and draped in the usual sterile fashion. Preoperative time-out was made to correctly identify the patient, side and site. Appropriate intraoperative antibiotics were given within one hour of incision. A standard posterior incision was made and carried sharply down to the lateral fascia. A new 10 blade was used to make an incision in the fascia in line with the skin incision. A charnley retractor was placed. The piriformis and conjoined tendons were identified and elevated off the posterolateral femur using electrocautery. These were tagged with number 5 Ethibond. Next electrocautery was used to make a posterolateral capsular flap and this was tagged with number 5 Ethibonds. The hip was carefully dislocated. Lesser trochanter to the center of the femoral head was measured at 62 mm. The oscillating saw was used to make the femoral neck cut. The femoral head was carefully removed. The femur was retracted anteriorly and the acetabular retractors were placed. Long-handled knife was used to sharply remove any remaining labrum from the acetabular rim. The acetabulum was sequentially reamed up to a size 56. A bleeding subchondral bone bed was obtained. A trial liner was placed and had excellent fit and stability. A 56F cup with a 20 mm screw was placed and had excellent stability with appropriate anteversion and abduction angle. A size 40F polyethylene liner was impacted into the acetabular shell. The liner was checked for stability and was stable. Next attention was turned to preparation of the femoral canal. A canal finder was used to enter the proximal femur. The femoral canal was sequentially broached up to a size 6 femoral broach trial. A trial neck and 40+0 trial femoral head was chosen. Lesser trochanter to center of the femoral head measurement was satisfactory. The hip was reduced and taken through a range of motion. The hip was stable in all positions with good soft tissue tension and appropriate leg lengths. The hip was dislocated and all trials were removed. The final implant chosen was a accolade II size 6. This stem was impacted into the femoral canal without difficulty. The stem was stable with appropriate anteversion. The femoral head chosen was a 40 +0 metal head. The head was impacted onto the femoral neck without difficulty. The final lesser trochanter to center of the femoral head measurement was satisfactory. The hip was reduced and taken through a range of motion. The hip was stable in all positions with good soft tissue tension and appropriate leg lengths. The hip was copiously irrigated with sterile saline. The previously tagged capsule and tendons were repaired to the posterolateral femur through two trochanteric drill holes. The lateral fascia layer was closed using number 1 vicryls. The rest of the incision was closed in a layered fashion using 0 and 2-0 vicryls. The skin was closed using 3-0 monocryl suture and Dermabond. Sterile adaptic, 4x4s and paper tape was used to cover the incision. The patients anesthesia was reversed without difficulty. He was taken to the PACU in stable condition. Intended weight-bearing will be as tolerated with posterior hip precautions.
[2019-10-07] MEDS: Docusate CAP* 100 MG PO SCH (20:39)
[2019-10-07] MEDS: Metoprolol Tartrate TAB* 25 MG PO SCH (20:39)
[2019-10-07] MEDS: Magnesium Hydroxide LIQ* 30 ML UDC PO SCH (20:40)
[2019-10-07] MEDS ORDERED: NON FORMULARY MED* (Multivitamin [Multivitamins] 1 CAP) PO SCH (21:00)
[2019-10-08] MEDS: ceFAZolin 1 GM ADVAN(*) 1 GM in NS 0.9% 50 ML* 50 ML IVPB SCH ×2 (01:47→09:58)
[2019-10-08 05:23] LABS: Hematocrit 38 % (42-52); Hemoglobin 12.9 g/dL (14.0-18.0); Mean Platelet Volume 8.7 fL (7.4-10.4); Platelet Count 156 10^3/uL (150-450)
[2019-10-08 05:40] LABS: BUN/Creatinine Ratio 24.4 (8-20); Calcium 8.1 mg/dL (8.6-10.3); EGFR Non-African American 52.9 (>60); Potassium 4.4 mmol/L (3.5-5.0)
[2019-10-08] MEDS: oxyCODONE/Acetamin 5/325 MG* TAB PO PRN ×2 (06:04→11:58)
[2019-10-08] MEDS: Docusate CAP* 100 MG PO SCH (07:57)
[2019-10-08] MEDS: amLODIPine TAB* 5 MG PO SCH (07:57)
[2019-10-08] MEDS: Metoprolol Tartrate TAB* 25 MG PO SCH (07:57)
[2019-10-08] MEDS: Magnesium Hydroxide LIQ* 30 ML UDC PO SCH (07:59)
[2019-10-08] MEDS ORDERED: Vitamin THERAPEUTIC TAB PO SCH (09:00)
[2019-10-08] MEDS ORDERED: Lisinopril TAB* 10 MG PO SCH (09:00)
[2019-10-08] MEDS ORDERED: Apixaban* 2.5 MG TAB PO SCH (09:00)
--- NOTE | 2019-10-08 10:49 | DS ---
Orthopedic Discharge Summary - Discharge Summary Date of Admission:10/07/19 Date of Discharge: 10/08/19 Date of Surgery: 10/07/19 Attending Orthopedic Provider: Dr Milian Pre-operative Diagnosis: Right hip osteoarthritis Operative Procedure: right total hip replacement Disposition of Patient: home with outpatient physical therapy and no nursing services Condition of Patient: stable History: ELLIOT OH is a 79 year old M with years of increasingly severe right hip pain. Patient has failed conservative management and has elected to undergo a right total hip replacement Hospital Course: ELLIOT was admitted to [facility] on 10/07/19. Patient underwent a right total hip replacement without complication followed by a brief recovery in PACU and transfer to the Short Stay Surgical Unit in stable condition. Our hospitalist service, physical therapy and occupational therapy also participated in this patients care. Post-op day 1: patient was alert and in no acute distress. Dressing was clean, dry and intact. Operative extremity dorsiflexion and plantarflexion intact, sensation intact to light touch distally, DP2+. Prior to discharge: dressing was changed, incision was clean, dry and intact. Patient was deemed to be medically and orthopedically stable for discharge. Physical therapy goals were met. Home Medications Medication Instructions Recorded Confirmed Type Aspirin [Aspir 81] 1 tab PO QAM 10/21/12 10/07/19 History Atorvastatin* [Lipitor*] 1 tab PO QPM 10/21/12 10/07/19 History Finasteride TAB* [Proscar TAB*] 1 tab PO 1200 10/21/12 10/07/19 History Hydrochlorothiazide TAB* 1 tab PO QAM 10/21/12 10/07/19 History [Hydrodiuril TAB*] Metoprolol Tartrate TAB* 25 mg PO BID 10/21/12 10/07/19 History [Lopressor TAB*] Omeprazole CAP (NF) [Prilosec CAP* 1 tab PO 1200 10/21/12 10/07/19 History 20 MG] Benazepril HCl 40 mg PO QAM 09/29/19 10/07/19 History Calcium Carbonate/Vitamin D3 1 cap PO 1200 09/29/19 10/07/19 History [Calcium 600+D Softgel] Multivitamin [Multivitamins] 1 cap PO BID 09/29/19 10/07/19 History amLODIPine TAB* [Norvasc 5 mg TAB*] 10 mg PO QAM 09/29/19 10/07/19 History Acetaminophen TAB* [Tylenol TAB*] 650 mg PO Q8HR PRN tab 10/08/19 Rx lovenox 40 mg sq injection 40 mg sq injection daily x 30 days 10/08/19 Rx Docusate CAP* [Colace Cap*] 100 mg PO BID PRN #90 cap 10/08/19 Rx oxyCODONE/Acetamin 5/325 MG* 1 tab PO Q4H PRN tab MDD 10 10/08/19 Rx [Percocet 5/325 TAB*] oxyCODONE/Acetamin 5/325 MG* 2 tab PO Q4H PRN #70 tab MDD 10 10/08/19 Rx [Percocet 5/325 TAB*] Discharge Instructions following Orthopedic Surgery: Activity: * Weight Bearing as tolerated * Continue physical therapy and occupational therapy exercises as shown * Start outpatient physical therapy Hip replacements: Continue Hip Precautions- do not cross legs or bend greater than 90 degrees/squat Wound care: * OK to shower on post-op day 3, no bathing, swimming, or submerging wound. * Use gentle soap, pat dry. Cover with gauze, OREN wrap or tape. Call Orthopedic office for: * Increased drainage * Redness * Increased pain * Fever Go to ER with shortness of breath or chest pain. Attend the outpatient lab within 3 days to recheck sodium which was low during your stay Diet: * Regular diet * Increase fluids and fiber to prevent constipation. * Continue to use stool softeners, call office if no bowel motion within 48 hours. Medications See Home Medication List in your packet for medications that you should take after discharge. DVT Prophylaxis: Lovenox 40 mg subcutaneous injection everyday for 30 days post op. Increases bleeding tendency Pain Control: Percocet Dosin/325 mg 1-2 tabs by mouth every 4-6 hours as needed for pain. Maximum of 10 tabs per day. HOld for sedation, wean off as soon as pain allows Please note that Percocet contains Tylenol (acetaminophen). Maximum daily dose of Tylenol is 4000 mg from all sources. Antibiotics are required prior to any dental work. FOLLOW UP: Follow up with Dr. Schmidt Within 10-14 days, call for appointment Please call our office with any questions or concerns ([phone]) Rx [facility]
[2019-10-08 11:43] VITALS: BP 113/51
[2019-10-08] MEDS ORDERED: Pantoprazole TAB * 40 MG TAB PO SCH (12:00)
[2019-10-08] MEDS ORDERED: Finasteride TAB* 5 MG PO SCH (12:00)
[2019-10-09] MEDS ORDERED: Bisacodyl SUPP* 10 MG SUPP PR PRN (11:59)
== END 2019-10-08 14:05 | disposition home or self-care (01) ==
LOC: OR 07:36 → EDSTATUS 09:15 → SSU 11:59 → INTOOBSV 11:59
PROVIDERS: ADMIT Orthopaedic Surgery Adult Reconstructive Orthopaedic Surgery; ATTEND Orthopaedic Surgery Adult Reconstructive Orthopaedic Surgery
DX: M16.11 Unilateral primary osteoarthritis, right hip (principal); I10 Essential (primary) hypertension; E78.5 Hyperlipidemia, unspecified; I25.2 Old myocardial infarction; Z85.820 Personal history of malignant melanoma of skin; I73.00 Raynaud's syndrome without gangrene; K42.9 Umbilical hernia without obstruction or gangrene; Z79.82 Long term (current) use of aspirin; I25.10 Atherosclerotic heart disease of native coronary artery without angina pectoris; Z79.899 Other long term (current) drug therapy
CPT/HCPCS: 36415; 72170; 80048; 85014; 85018; 85049; A9270-GY; C1713; C1776; G0378; J0690; J1100; J2405; J2704; J3010; J3490

== ENCOUNTER 2020-07-13 08:48 | Inpatient (IN) ==
[~2020-07-13 08:48] MED LIST changes: -Acetaminophen TAB* 325 MG PO ONE; +Buffered Lidocaine 1% SYRIN 1 ml INTRADERM ONE; -Buffered Lidocaine 1% SYRIN* 1 ML/SYRINGE INTRADERM ONE; -Lactated Ringers 1000 ML Bag* 1,000 ML IV SCH; +Lactated Ringers 1000 ml BAG 1,000 ML IV SCH; -Tranexamic Acid 1,000 MG in NS 0.9% 50 ML IV ONE; -celeCOXIB CAP* 200 MG PO ONE
[2020-07-13] MEDS ORDERED: ceFAZolin 2 GM PREMIX 2 GM/50 ML BAG ONE (09:13)
[2020-07-13] MEDS ORDERED: Midazolam 2 mg/2 ml VIAL 1 mg/ml 2 ml VIAL (2 mg) ONE (10:41)
[2020-07-13] MEDS ORDERED: fentaNYL 100 mcg/2 ml 50 MCG/ML VIAL ONE (10:41)
[2020-07-13] MEDS ORDERED: ROPIVACAINE 5 MG/ML 30 ML BTL (0.5%) ONE (11:05)
[2020-07-13] MEDS ORDERED: Bupivacaine 0.5% SDV PF 30ML VIAL ONE (11:33)
[2020-07-13] MEDS ORDERED: Ondansetron 4 mg VIAL 2 MG/ML 2 ml VIAL IV PRN ×2 (12:42→12:49)
[2020-07-13] MEDS ORDERED: Naloxone 0.4 mg VIAL 0.4 mg/ml 1 ml VIAL IV PRN (12:42)
[2020-07-13] MEDS ORDERED: fentaNYL 100 mcg/2 ml 50 MCG/ML VIAL IV PRN (12:42)
[2020-07-13] MEDS ORDERED: HYDROmorphone 1 MG/1 ML SYRINGE IV PRN (12:42)
[2020-07-13] MEDS ORDERED: Ondansetron ODT 4 mg TAB 4 MG TAB PO PRN (12:49)
[2020-07-13] MEDS ORDERED: diPHENhydraMINE 25 mg TAB PO PRN (12:49)
[2020-07-13] MEDS ORDERED: Magnesium Hydroxide LIQ 30 ML UDC PO PRN (12:49)
[2020-07-13] MEDS ORDERED: Morphine 2 MG/ML SYRINGE IV PRN (12:49)
[2020-07-13] MEDS ORDERED: Lactulose 30 ml UDC PO PRN (12:49)
[2020-07-13] MEDS ORDERED: oxyCODONE/Acetamin 5/325 mg TAB PO PRN (12:49)
[2020-07-13] MEDS ORDERED: diPHENhydraMINE IV 50 MG/ML 1 ml VIAL (BENADRYL) IV PRN (12:49)
[2020-07-13] MEDS ORDERED: Ondansetron 4 mg VIAL 2 MG/ML 2 ml VIAL ONE (13:38)
[2020-07-13] MEDS ORDERED: Propofol 10 MG/ML 20 ML BTL ONE (13:38)
[2020-07-13] MEDS ORDERED: Lidocaine 2% PF 5 ML VIAL ONE (13:38)
[2020-07-13] MEDS ORDERED: Dextrose 50% Syringe 50 ml 25 GM/50 ML SYRINGE IV PUSH PRN (15:07)
[2020-07-13] MEDS: Lactated Ringers 1000 ml BAG 1,000 ML IV SCH (16:00)
[2020-07-13] MEDS: oxyCODONE/Acetamin 5/325 mg TAB PO PRN ×2 (17:01→21:10)
[2020-07-13] MEDS ORDERED: Lactated Ringers 1000 ml BAG 1,000 ML IV ONE (17:43)
[2020-07-13 19:00] LABS: Hematocrit 40 % (42-52); Hemoglobin 13.1 g/dL (14.0-18.0)
[2020-07-13] MEDS: ceFAZolin 1 GM ADVAN 1 GM in NS 0.9% 50 ML 50 ML IVPB SCH (20:04)
[2020-07-13] MEDS: Magnesium Hydroxide LIQ 30 ML UDC PO SCH (21:09)
[2020-07-14] MEDS: Lactated Ringers 1000 ml BAG 1,000 ML IV SCH (03:32)
[2020-07-14] MEDS: ceFAZolin 1 GM ADVAN 1 GM in NS 0.9% 50 ML 50 ML IVPB SCH ×2 (03:33→12:18)
[2020-07-14 06:53] LABS: Hematocrit 37 % (42-52); Hemoglobin 12.9 g/dL (14.0-18.0); Mean Platelet Volume 8.4 fL (7.4-10.4); Platelet Count 145 10^3/uL (150-450)
[2020-07-14 07:14] LABS: BUN/Creatinine Ratio 17.9 (8-20); Calcium 8.4 mg/dL (8.6-10.3); EGFR African American 76.5 (>60); EGFR Non-African American 63.2 (>60); Potassium 4.4 mmol/L (3.5-5.0)
[2020-07-14] MEDS: oxyCODONE/Acetamin 5/325 mg TAB PO PRN (08:13)
[2020-07-14] MEDS: Magnesium Hydroxide LIQ 30 ML UDC PO SCH ×2 (08:14→21:41)
[2020-07-14] MEDS: Vitamin THERAPEUTIC TAB PO SCH (08:14)
[2020-07-14] MEDS ORDERED: BENAZEPRIL 40 MG PO SCH (09:00)
[2020-07-14] MEDS ORDERED: Iodixanol (CONTRAST) 320 MG/ML 100 ML SDV IV SCH (13:37)
[2020-07-14] MEDS: Enoxaparin 40 MG/0.4 ML SYR SUBCUT SCH (21:41)
[2020-07-15] MEDS: oxyCODONE/Acetamin 5/325 mg TAB PO PRN ×2 (06:41→12:07)
[2020-07-15 06:45] LABS: ABS Eosinophils 0.1 10^3/ul (0-0.6); ABS Lymphocytes 1.4 10^3/ul (1.0-4.8); ABS Monocytes 1.2 10^3/ul (0-0.8); ABS Neutrophils 7.3 10^3/ul (1.5-7.7); Eosinophil % 0.6 %; Hematocrit 32 % (42-52); Hemoglobin 11.2 g/dL (14.0-18.0); Lymphocyte % 13.8 %; Mean Corpuscular HGB Conc 35 g/dL (31-36); Mean Corpuscular Hemoglobin 33 pg (27-31); Mean Corpuscular Volume 96 fL (80-94); Mean Platelet Volume 8.7 fL (7.4-10.4); Platelet Count 142 10^3/uL (150-450); Red Blood Count 3.36 10^6 /uL (4.18-5.48); Red Cell Distribution Width 13 % (10-15); White Blood Count 9.9 10^3/uL (3.5-10.8)
[2020-07-15 07:16] LABS: BUN/Creatinine Ratio 18.8 (8-20); Calcium 8.2 mg/dL (8.6-10.3); EGFR African American 62.8 (>60); EGFR Non-African American 51.9 (>60); Potassium 4.1 mmol/L (3.5-5.0)
[2020-07-15] MEDS ORDERED: NS 0.9% 500 ml BAG 500 ML IV ONE ×2 (08:09→13:20)
[2020-07-15] MEDS: Magnesium Hydroxide LIQ 30 ML UDC PO SCH ×2 (08:21→20:23)
[2020-07-15] MEDS: Vitamin THERAPEUTIC TAB PO SCH (08:21)
[2020-07-15] MEDS ORDERED: NS 0.9% 1000 ml BAG 1,000 ML IV SCH ×2 (12:45→13:21)
[2020-07-15] MEDS ORDERED: NS 0.9% 1000 ml BAG 1,000 ML IV ONE (17:18)
[2020-07-15 18:50] LABS: ABS Eosinophils 0.1 10^3/ul (0-0.6); ABS Lymphocytes 1.3 10^3/ul (1.0-4.8); Eosinophil % 1.3 %; Hematocrit 33 % (42-52); Hemoglobin 11.1 g/dL (14.0-18.0); Lymphocyte % 13.2 %; Mean Corpuscular HGB Conc 34 g/dL (31-36); Mean Corpuscular Hemoglobin 33 pg (27-31); Mean Corpuscular Volume 96 fL (80-94); Mean Platelet Volume 8.3 fL (7.4-10.4); Platelet Count 150 10^3/uL (150-450); Red Blood Count 3.41 10^6 /uL (4.18-5.48); Red Cell Distribution Width 13 % (10-15); White Blood Count 9.4 10^3/uL (3.5-10.8)
[2020-07-15 19:13] LABS: BUN/Creatinine Ratio 20.3 (8-20); Calcium 7.9 mg/dL (8.6-10.3); EGFR African American 60.1 (>60); EGFR Non-African American 49.7 (>60); Magnesium 2.2 mg/dL (1.9-2.7)
[2020-07-15] MEDS: Enoxaparin 40 MG/0.4 ML SYR SUBCUT SCH (20:24)
[2020-07-15 20:38] LABS: Urine Appearance Cloudy; Urine Bilirubin Negative (Negative); Urine Blood Negative (Negative); Urine Color Yellow; Urine Glucose 1+(50 mg/dL) (Negative); Urine Ketones Negative (Negative); Urine Nitrite Negative (Negative); Urine Protein Negative (Negative); Urine Specific Gravity 1.019 (1.010-1.030); Urine Urobilinogen Negative (Negative)
[2020-07-16 06:19] LABS: ABS Eosinophils 0.1 10^3/ul (0-0.6); ABS Neutrophils 6.5 10^3/ul (1.5-7.7); Eosinophil % 1.5 %; Hematocrit 31 % (42-52); Hemoglobin 10.5 g/dL (14.0-18.0); Mean Corpuscular HGB Conc 34 g/dL (31-36); Mean Corpuscular Hemoglobin 32 pg (27-31); Mean Corpuscular Volume 95 fL (80-94); Mean Platelet Volume 8.2 fL (7.4-10.4); Platelet Count 152 10^3/uL (150-450); Red Blood Count 3.26 10^6 /uL (4.18-5.48); Red Cell Distribution Width 13 % (10-15); White Blood Count 8.7 10^3/uL (3.5-10.8)
[2020-07-16 06:49] LABS: Calcium 7.8 mg/dL (8.6-10.3); EGFR African American 71.4 (>60); Potassium 4.2 mmol/L (3.5-5.0)
[2020-07-16] MEDS: Vitamin THERAPEUTIC TAB PO SCH (08:52)
[2020-07-16] MEDS: Magnesium Hydroxide LIQ 30 ML UDC PO SCH (08:52)
[2020-07-16 11:41] VITALS: BP 133/65
== END 2020-07-16 15:30 | disposition home or self-care (01) | DRG 470 ==
LOC: INTOOBSV 08:48 → AA 08:48 → SSU 16:42
PROVIDERS: ADMIT Orthopaedic Surgery Adult Reconstructive Orthopaedic Surgery; ATTEND Orthopaedic Surgery Adult Reconstructive Orthopaedic Surgery

== ENCOUNTER 2022-01-26 10:35 | Observation (INO) ==
[2022-01-26 11:20] LABS: ABS Eosinophils 0.1 10^3/ul (0-0.6); ABS Lymphocytes 1.3 10^3/ul (1.0-4.8); ABS Monocytes 0.6 10^3/ul (0-0.8); ABS Neutrophils 4.1 10^3/ul (1.5-7.7); Eosinophil % 2.4 %; Hematocrit 40 % (42-52); Hemoglobin 14.1 g/dL (14.0-18.0); Lymphocyte % 20.8 %; Mean Corpuscular HGB Conc 35 g/dL (31-36); Mean Corpuscular Hemoglobin 33 pg (27-31); Mean Corpuscular Volume 94 fL (80-94); Mean Platelet Volume 8.2 fL (7.4-10.4); Nucleated Red Blood Cells % 0.1; Platelet Count 194 10^3/uL (150-450); Red Blood Count 4.29 10^6 /uL (4.18-5.48); Red Cell Distribution Width 13 % (10-15); White Blood Count 6.1 10^3/uL (3.5-10.8)
[2022-01-26 11:23] LABS: INR 1.04 (0.86-1.15)
[2022-01-26 12:31] LABS: Albumin 3.9 g/dL (3.2-5.2); Albumin/Globulin Ratio 1.4 (1-3); Calcium 9.3 mg/dL (8.6-10.3); Globulin 2.7 g/dL (2-4); Potassium 4.4 mmol/L (3.5-5.0); Total Bilirubin 0.4 mg/dL (0.2-1.0); Total Protein 6.6 g/dL (6.4-8.9); eGFR CKD-EPI 60.5 (>60)
[2022-01-26 12:43] LABS: High Sensitivity Troponin 1 Hr 10 pg/mL (<20)
[2022-01-26] MEDS: Enoxaparin 40 MG/0.4 ML SYR SUBCUT SCH (14:33)
[2022-01-26] MEDS ORDERED: Dextrose 50% Syringe 50 ml 25 GM/50 ML SYRINGE IV PUSH PRN (18:23)
[2022-01-27 06:53] LABS: ABS Eosinophils 0.2 10^3/ul (0-0.6); ABS Lymphocytes 1.8 10^3/ul (1.0-4.8); ABS Monocytes 0.6 10^3/ul (0-0.8); ABS Neutrophils 3.4 10^3/ul (1.5-7.7); Eosinophil % 3.9 %; Hematocrit 39 % (42-52); Hemoglobin 13.3 g/dL (14.0-18.0); Lymphocyte % 29.1 %; Mean Corpuscular HGB Conc 34 g/dL (31-36); Mean Corpuscular Hemoglobin 32 pg (27-31); Mean Corpuscular Volume 94 fL (80-94); Mean Platelet Volume 8.3 fL (7.4-10.4); Platelet Count 174 10^3/uL (150-450); Red Blood Count 4.17 10^6 /uL (4.18-5.48); Red Cell Distribution Width 13 % (10-15); White Blood Count 6.1 10^3/uL (3.5-10.8)
[2022-01-27 07:24] LABS: HDL Cholesterol 30.2 mg/dL; Potassium 4.7 mmol/L (3.5-5.0)
[2022-01-27] MEDS ORDERED: Regadenoson 0.4 MG/5 ML SYRINGE ONE (08:09)
[2022-01-27] MEDS ORDERED: Aminophylline 25 MG/ML VIAL ONE (08:09)
[2022-01-27] MEDS ORDERED: BENAZEPRIL 40 MG PO SCH (09:00)
[2022-01-27] MEDS: Enoxaparin 40 MG/0.4 ML SYR SUBCUT SCH (14:13)
[2022-01-27 15:25] VITALS: BP 124/54
== END 2022-01-27 16:20 | disposition home or self-care (01) ==
LOC: EDHOLD 10:35 → ED 10:35 → MEDTELE 15:17
PROVIDERS: ADMIT Hospitalist; ATTEND Hospitalist

== ENCOUNTER 2022-02-11 17:12 | Inpatient (IN) ==
[2022-02-11] MEDS ORDERED: Heparin - STEMI 5,000 UNITS/ML 1 ml VIAL IV ONE ×2 (17:36→17:38)
[2022-02-11] MEDS ORDERED: fentaNYL 100 mcg/2 ml 50 MCG/ML VIAL IV SLOW PU ONE (17:38)
[2022-02-11 17:41] LABS: ABS Basophils 0.1 10^3/ul (0-0.2); ABS Eosinophils 0.1 10^3/ul (0-0.6); ABS Lymphocytes 1.6 10^3/ul (1.0-4.8); ABS Monocytes 0.7 10^3/ul (0-0.8); ABS Neutrophils 4.9 10^3/ul (1.5-7.7); Eosinophil % 1.5 %; Hematocrit 39 % (42-52); Hemoglobin 13.7 g/dL (14.0-18.0); Lymphocyte % 22.1 %; Mean Corpuscular HGB Conc 35 g/dL (31-36); Mean Corpuscular Hemoglobin 33 pg (27-31); Mean Corpuscular Volume 94 fL (80-94); Mean Platelet Volume 8.5 fL (7.4-10.4); Nucleated Red Blood Cells % 0.1; Platelet Count 192 10^3/uL (150-450); Red Blood Count 4.19 10^6 /uL (4.18-5.48); Red Cell Distribution Width 13 % (10-15); White Blood Count 7.4 10^3/uL (3.5-10.8)
[2022-02-11] MEDS ORDERED: Heparin 2 UNITS/ML 1000 mls 2,000 ML IV ONE (17:49)
[2022-02-11] MEDS ORDERED: VERAPAMIL 2.5 MG/ML 2 ML VIAL ** 5 mg/2 ml ONE (17:49)
[2022-02-11] MEDS ORDERED: Heparin 1,000 UNIT/ML 10 ml (10,000 UNITS) CATHLAB/DIALYSIS ONE (17:49)
[2022-02-11] MEDS ORDERED: nitroGLYCERIN DRIP 25,000 MCG/250 ML BTL ONE ×2 (17:49→19:01)
[2022-02-11 17:50] LABS: INR 1.07 (0.86-1.15)
[2022-02-11] MEDS ORDERED: Lidocaine 1% MPF 5 ML VIAL ONE (17:50)
[2022-02-11] MEDS ORDERED: Iohexol 350 (CONTRAST) 200 ML MDV IV ONE ×2 (17:50→18:52)
[2022-02-11 18:04] LABS: High Sens Troponin Baseline 36 pg/mL (<20)
[2022-02-11] MEDS ORDERED: fentaNYL 100 mcg/2 ml 50 MCG/ML VIAL ONE (18:19)
[2022-02-11] MEDS ORDERED: Midazolam 5 mg/5 ml VIAL 1 mg/ml 5 ml VIAL (5 mg) ONE (18:19)
[2022-02-11] MEDS ORDERED: Bivalirudin 250 MG VIAL ONE (18:24)
[2022-02-11 18:26] LABS: Albumin 3.9 g/dL (3.2-5.2)
[2022-02-11 18:31] LABS: Calcium 9.3 mg/dL (8.6-10.3)
[2022-02-11 18:32] LABS: Albumin/Globulin Ratio 1.4 (1-3); CO2 Carbon Dioxide 25 mmol/L (22-32); Chloride 100 mmol/L (101-111); Globulin 2.8 g/dL (2-4); Total Protein 6.7 g/dL (6.4-8.9)
[2022-02-11 18:35] LABS: ALT 24 U/L (7-52); Alkaline Phosphatase 90 U/L (35-149); Anion Gap 10 mmol/L (2-11); Blood Urea Nitrogen 38 mg/dL (6-24); Glucose 168 mg/dL (70-100); Sodium 135 mmol/L (135-145); eGFR CKD-EPI 51.2 (>60)
[2022-02-11] MEDS: NS 0.9% 1000 ml BAG 1,000 ML IV SCH ×2 (19:50→23:36)
[2022-02-11 20:02] LABS: High Sensitivity Troponin 1 Hr 34 pg/mL (<20)
[2022-02-11] MEDS ORDERED: Al Hydrox/Mg Hydrox/Simet LIQ 30 ML UDC PO ONE (20:50)
[2022-02-11] MEDS ORDERED: Ondansetron 4 mg VIAL 2 MG/ML 2 ml VIAL IV PRN (21:19)
[2022-02-11 21:26] LABS: Potassium, Whole Blood 4.3 mmol/L (3.4-4.5)
[2022-02-11] MEDS ORDERED: Iohexol 350 (CONTRAST) 500 ML MDV IV ONE (21:34)
[2022-02-11] MEDS: Enoxaparin 40 MG/0.4 ML SYR SUBCUT SCH (23:33)
[2022-02-12 05:42] LABS: Calcium 8.6 mg/dL (8.6-10.3); Potassium 3.9 mmol/L (3.5-5.0); eGFR CKD-EPI 64.3 (>60)
[2022-02-12] MEDS ORDERED: Potassium Chloride LIQUID 20 MEQ/15 ML LIQUID PO ONE (06:16)
[2022-02-12 09:59] LABS: C Reactive Protein 1.43 mg/L (<8.01)
[2022-02-12 11:54] LABS: HDL Cholesterol 28.2 mg/dL
[2022-02-12] MEDS: Enoxaparin 40 MG/0.4 ML SYR SUBCUT SCH (20:13)
[2022-02-13 05:15] LABS: ABS Eosinophils 0.2 10^3/ul (0-0.6); ABS Lymphocytes 1.7 10^3/ul (1.0-4.8); ABS Monocytes 0.7 10^3/ul (0-0.8); ABS Neutrophils 3.5 10^3/ul (1.5-7.7); Eosinophil % 3.2 %; Hematocrit 36 % (42-52); Hemoglobin 12.3 g/dL (14.0-18.0); Lymphocyte % 27.9 %; Mean Corpuscular HGB Conc 34 g/dL (31-36); Mean Corpuscular Hemoglobin 32 pg (27-31); Mean Corpuscular Volume 94 fL (80-94); Mean Platelet Volume 8.7 fL (7.4-10.4); Platelet Count 164 10^3/uL (150-450); Red Blood Count 3.81 10^6 /uL (4.18-5.48); Red Cell Distribution Width 13 % (10-15); White Blood Count 6.2 10^3/uL (3.5-10.8)
[2022-02-13 05:39] LABS: Calcium 8.6 mg/dL (8.6-10.3); Magnesium 1.8 mg/dL (1.9-2.7); Potassium 4.2 mmol/L (3.5-5.0); eGFR CKD-EPI 56.1 (>60)
[2022-02-13] MEDS ORDERED: Magnesium Sulfate IV 3 GM in NS 0.9% 100 ml BAG 100 ML IVPB ONE (05:48)
[2022-02-13] MEDS ORDERED: Magnesium Sulfate 2 GM IV (Premix) IVPB ONE (06:00)
[2022-02-13] MEDS ORDERED: Magnesium Sulfate 1 GM IV 1 GM/100 ML BAG IV ONE (07:00)
[2022-02-13] MEDS ORDERED: Al Hydrox/Mg Hydrox/Simet LIQ 30 ML UDC PO ONE (09:17)
[2022-02-13 14:30] LABS: High Sensitivity Troponin 1 Hr 950 pg/mL (<20)
[2022-02-13] MEDS ORDERED: Enoxaparin 100 MG/ML SYR SUBCUT ONE (14:48)
[2022-02-13] MEDS ORDERED: NS 0.9% 1000 ml BAG 1,000 ML IV SCH (23:55)
[2022-02-14 06:05] LABS: ABS Basophils 0.1 10^3/ul (0-0.2); ABS Eosinophils 0.2 10^3/ul (0-0.6); ABS Lymphocytes 1.9 10^3/ul (1.0-4.8); ABS Monocytes 0.6 10^3/ul (0-0.8); ABS Neutrophils 2.9 10^3/ul (1.5-7.7); Eosinophil % 2.9 %; Hematocrit 37 % (42-52); Hemoglobin 12.5 g/dL (14.0-18.0); Lymphocyte % 33.8 %; Mean Corpuscular HGB Conc 34 g/dL (31-36); Mean Corpuscular Hemoglobin 32 pg (27-31); Mean Corpuscular Volume 94 fL (80-94); Mean Platelet Volume 8.7 fL (7.4-10.4); Nucleated Red Blood Cells % 0.1; Platelet Count 169 10^3/uL (150-450); Red Blood Count 3.94 10^6 /uL (4.18-5.48); Red Cell Distribution Width 13 % (10-15); White Blood Count 5.6 10^3/uL (3.5-10.8)
[2022-02-14 06:40] LABS: Calcium 8.5 mg/dL (8.6-10.3); Potassium 4.2 mmol/L (3.5-5.0); eGFR CKD-EPI 61.1 (>60)
[2022-02-14] MEDS ORDERED: fentaNYL 100 mcg/2 ml 50 MCG/ML VIAL ONE ×2 (08:10→09:48)
[2022-02-14] MEDS ORDERED: Midazolam 5 mg/5 ml VIAL 1 mg/ml 5 ml VIAL (5 mg) ONE (08:10)
[2022-02-14] MEDS ORDERED: Heparin 2 UNITS/ML 1000 mls 2,000 ML IV ONE (08:11)
[2022-02-14] MEDS ORDERED: nitroGLYCERIN DRIP 25,000 MCG/250 ML BTL ONE ×2 (08:11→10:47)
[2022-02-14] MEDS ORDERED: Heparin 1,000 UNIT/ML 10 ml (10,000 UNITS) CATHLAB/DIALYSIS ONE (08:11)
[2022-02-14] MEDS ORDERED: Iohexol 350 (CONTRAST) 200 ML MDV IV ONE ×2 (08:11→09:17)
[2022-02-14] MEDS ORDERED: VERAPAMIL 2.5 MG/ML 2 ML VIAL ** 5 mg/2 ml ONE (08:11)
[2022-02-14] MEDS ORDERED: Lidocaine 1% MPF 5 ML VIAL ONE (08:12)
[2022-02-14] MEDS ORDERED: Heparin 2 UNITS/ML 1000 mls 1,000 ML IV ONE (09:32)
[2022-02-14] MEDS ORDERED: niCARdipine 0.1MG/ML IVPREMIX 20 MG/200 ML BAG IV ONE (09:37)
[2022-02-14] MEDS ORDERED: Bivalirudin 250 MG VIAL ONE (09:39)
[2022-02-14] MEDS ORDERED: nitroGLYCERIN DRIP 25,000 MCG/250 ML BTL IV SCH (13:00)
[2022-02-14 13:18] VITALS: BP 123/64
== END 2022-02-14 13:10 | disposition short-term general hospital (02) | DRG 287 ==
LOC: ED 17:12 → CHICATH 18:16 → ICU 20:12 → MEDTELE 02-12 12:26 → ICU 02-14 11:40
PROVIDERS: ATTEND Internal Medicine